=== PATIENT | female | born 1955 | race American Indian/Alaskan Native ===

== ENCOUNTER 2017-01-20 12:46 | Outpatient (CLI) | payer OTHER ==
--- NOTE | 2017-01-20 14:53 | Ultrasound Report ---
Limited ultrasound of the left arm. History: Soft tissue mass. Findings: Images of the area of palpable abnormality demonstrate no evidence of a cystic or solid mass. If clinically appropriate, MRI may be useful. Impression: Negative study.
== END 2017-01-20 12:47 | disposition home or self-care (01) ==
LOC: US 12:46
PROVIDERS: ATTEND Internal Medicine
DX: R22.32 Localized swelling, mass and lump, left upper limb (principal)

== ENCOUNTER 2017-03-22 17:30 | Emergency (ER) | payer OTHER ==
[2017-03-22 18:22] LABS: Basophils % (Auto) 0.5 % (0.0-1.8); Eosinophils % (Auto) 1.8 % (0.0-4.3); Hematocrit 30.3 % (30.3-42.9); Hemoglobin 9.2 gm/dl (10.1-14.3); Mean Corpuscular HGB Conc 31 % (30-34); Platelet Count 264 K/mm3 (140-440); Red Blood Count 4.53 M/mm3 (3.65-5.03); White Blood Count 6.1 K/mm3 (4.5-11.0)
[2017-03-22 18:28] LABS: Anion Gap 17 mmol/L; BUN/Creatinine Ratio 13.75; Blood Urea Nitrogen 11 mg/dL (7-17); Calcium 8.8 mg/dL (8.4-10.2); Carbon Dioxide 24 mmol/L (22-30); Chloride 103.1 mmol/L (98-107); Glucose 102 mg/dL (65-100); Potassium 3.7 mmol/L (3.6-5.0); Sodium 140 mmol/L (137-145)
[2017-03-22 18:30] LABS: Mean Corpuscular Hemoglobin 20 pg (28-32); Mean Corpuscular Volume 67 fl (79-97); Red Cell Distribution Width 22.6 % (13.2-15.2)
[2017-03-22 19:39] LABS: Bacteria,Urine 1+ /HPF (Negative); Bilirubin,Urine NEG (Negative); Blood,Urine NEG (Negative); Ketones,Urine NEG (Negative); Leukocyte Esterase,Urine NEG (Negative); Mucus,Urine FEW /HPF; Nitrite,Urine NEG (Negative); Protein,Urine <15 mg/dL mg/dL (Negative); Urobilinogen,Urine < 2.0 mg/dL (<2.0); WBC,Urine < 1.0 /HPF (0.0-6.0)
[2017-03-22] MEDS ORDERED: TORADOL IM ONE (20:03)
[2017-03-22] MEDS ORDERED: BENADRYL PO ONE (20:05)
[2017-03-22] MEDS ORDERED: MOTRIN PO ONE (20:09)
[2017-03-22] MEDS ORDERED: BACTRIM DS PO ONE (20:10)
--- NOTE | 2017-03-22 20:10 | Emergency Department Report ---
HPI - General Chief Complaint: Animal Bite Time Seen by Provider: 03/22/17 20:02 - HPI HPI: She is a 61-year-old female presents to ED complaining of generalized muscle ache, fever since yesterday. Patient states she was cleaning a new house yesterday and saw some spiders. Patient states she was not sure she was bitten by the spider. She stat states one episode of vomiting earlier today. Patient states last nail was earlier today around 1 PM she states she noticed some swelling on the left arm possible from the bite. She denies chills/nausea/abdominal pain/constipation/shortness of breath/chest pain/dizziness ED Past Medical Hx - Past Medical History Previous Medical History?: Yes Hx Hypertension: Yes Hx Heart Attack/AMI: Yes Hx Congestive Heart Failure: Yes Hx Diabetes: Yes Hx Deep Vein Thrombosis: No Hx Pulmonary Embolism: No Hx Liver Disease: No Hx Renal Disease: No Hx Arthritis: Yes Hx Headaches / Migraines: Yes Hx Seizures: No Hx Kidney Stones: No Hx Asthma: Yes Hx COPD: No Hx Tuberculosis: No Hx Dementia: No Hx HIV: No Additional medical history: HYPERTRHYOIDSIM. ULCER. HEP C? - Surgical History Past Surgical History?: Yes Hx Coronary Stent: No Hx Pacemaker: Yes Hx Internal Defibrillator: No Hx Cholecystectomy: No Hx Appendectomy: No Hx Breast Surgery: No Additional Surgical History: GLAND REMOVAL RIGHT UNDER ARM. PARTIAL HYSTERECTOMY, Pacemaker right chest - Social History Smoking Status: Former Smoker Substance Use Type: Prescribed - Medications Home Medications: Home Medications Medication Instructions Recorded Confirmed Last Taken Type Albuterol Sulfate [Ventolin HFA] 2 puff IH Q4H PRN 06/28/14 06/19/16 06/18/16 History 2 Esomeprazole Magnesium [NexIUM] 40 mg PO QDAY 06/28/14 06/19/16 06/18/16 History 40mg Hydrochlorothiazide [HCTZ] 50 mg PO DAILY 06/28/14 06/19/16 06/18/16 History 50mg metFORMIN [Glucophage] 1,000 mg PO BID 06/28/14 06/19/16 06/18/16 History 1000mg Fexofenadine/Pseudoephedrine 1 each PO DAILY 05/31/16 06/19/16 06/18/16 History [Stephanie-D 24 Hour Tablet] 1 Levothyroxine [Synthroid] 25 mcg PO QAM 05/31/16 06/19/16 06/18/16 History 25mcg Ferrous Sulfate [Feosol 325 MG tab] 325 mg PO BID 60 Days 06/04/16 06/19/16 Rx 325mg Amoxicillin [Amoxicillin 400 MG/5 400 mg PO BID #120 ml 03/22/17 Unknown Rx ML] Ibuprofen Oral Liqd [Motrin] 200 mg PO TID PRN #200 ml 03/22/17 Unknown Rx Promethazine /Codeine 5 ml PO Q6H PRN #80 ml 03/22/17 Unknown Rx [Phenergan/Codeine 6.25-10 mg/5Ml] diphenhydrAMINE [Benadryl ORAL LIQ] 25 mg PO Q4-6H PRN #80 ml 03/22/17 Unknown Rx ED Review of Systems ROS: Stated complaint: POSS SPIDER BITE Other details as noted in HPI Constitutional: denies: chills, fever Eyes: denies: eye pain, eye discharge, vision change ENT: denies: ear pain, throat pain, dental pain, hearing loss, congestion Respiratory: denies: cough, shortness of breath, wheezing Cardiovascular: denies: chest pain, palpitations Endocrine: no symptoms reported Gastrointestinal: vomiting. denies: abdominal pain, nausea, diarrhea Genitourinary: denies: urgency, dysuria, frequency, hematuria, discharge Musculoskeletal: denies: back pain, joint swelling, arthralgia Skin: denies: rash, lesions Neurological: denies: headache, weakness, paresthesias Psychiatric: denies: anxiety, depression Hematological/Lymphatic: denies: easy bleeding, easy bruising Physical Exam - Physical Exam Vital Signs: Vital Signs 03/22/17 17:44 Temperature 100.4 F H Pulse Rate 106 H Respiratory 20 Rate Blood Pressure 128/76 O2 Sat by Pulse 99 Oximetry Physical Exam: GENERAL: Alert and oriented x3, no apparent distress, Normal Gait, atraumatic. HEAD: Head is normocephalic and a-traumatic. EYES: Extra ocular muscles are intact. Pupils are equal, round, and reactive to light and accommodation. EARS: symetrical, atraumatic, non tender, ear canal clear and moderate cerumen, tympanic membrance non inflamed. gross auditory nml bilaterally. NOSE: Nose symetrical, Nontender,Nares appeared normal. MOUTH:Mouth is well hydrated and without lesions. Tonsils nonerythematous or swollen, Uvula midline, Tongue not elevated. Mucous membranes are moist. Posterior pharynx clear, no exudate or lesions. Patent airways. NECK: Supple. Non edematous, No carotid bruits. No lymphadenopathy or thyromegaly. LUNGS: Symetrical with respiration, No wheezing, no rales or crackles, CTAB. HEART: S1, S2 present, regular rate and rhythm without murmur, no rubs, no gallops. Non tender to palpation ABDOMEN: No organomegaly was noted,Positive bowel sounds, soft, and non- distended. . Nontender to palpation on all Quadrants, NO CVA tenderness. EXTREMITIES/MUSCULOSKELETAL: No cyanosis, clubbing, rash, lesions or edema. Full ROM bilaterally. UE/LE Pulses 2+ bilaterally. LE and UE 5+ strength bilaterally SKIN: Warm and dry, No lesions, No ulceration or induration present. ED Course Vital Signs 03/22/17 17:44 Temperature 100.4 F H Pulse Rate 106 H Respiratory 20 Rate Blood Pressure 128/76 O2 Sat by Pulse 99 Oximetry ED Medical Decision Making - Lab Data Result diagrams: 03/22/17 17:58 03/22/17 17:58 - Medical Decision Making 61-year-old female presents with urinary tract infection ED course: CBC, BMP, urinalysis, chest x-ray are ordered. Urinalysis positive for UTI All other results normal limits Discussed all findings of patient. discussed with patient to take medication as prescribed. Discussed if worsening symptoms or new symptoms arise to return to ED. Discussed the fever elevates over 102 Fahrenheit to return to ED. Vital signs are stable fever reduced and was responsive to Tylenol and Motrin Critical care attestation.: If time is entered above; I have spent that time in minutes in the direct care of this critically ill patient, excluding procedure time. ED Disposition Clinical Impression: UTI (urinary tract infection) Qualifiers: Urinary tract infection type: acute cystitis Hematuria presence: with hematuria Qualified Code(s): N30.01 - Acute cystitis with hematuria Disposition: TO HOME OR SELFCARE Is pt being admited?: No Does the pt Need Aspirin: No Condition: Stable Instructions: Urinary Tract Infection in Women (ED), Insect Bite or Sting (ED) Prescriptions: Amoxicillin [Amoxicillin 400 MG/5 ML] 400 mg PO BID #120 ml diphenhydrAMINE [Benadryl ORAL LIQ] 25 mg PO Q4-6H PRN #80 ml PRN Reason: Allergy Symptoms Ibuprofen Oral Liqd [Motrin] 200 mg PO TID PRN #200 ml PRN Reason: Pain Promethazine /Codeine [Phenergan/Codeine 6.25-10 mg/5Ml] 5 ml PO Q6H PRN #80 ml PRN Reason: cough Referrals: FRANCISCO ABRAHAM MD [Primary Care Provider] - 3-5 Days Forms: Work/School Release Form(ED) Time of Disposition: 22:48
--- NOTE | 2017-03-22 21:48 | XRay Report ---
FINAL REPORT EXAM: XR CHEST ROUTINE 2V HISTORY: fev/cough TECHNIQUE: PA and lateral chest radiographs PRIORS: None. FINDINGS: No mediastinal shift. Cardiac silhouette is not enlarged. Right chest pacemaker. No pneumothorax, effusion, or focal pulmonary opacity. No acute skeletal finding. IMPRESSION: No focal pulmonary opacity.
[2017-03-22 21:49] VITALS: BP 146/79
== END 2017-03-22 23:09 | disposition home or self-care (01) ==
LOC: ED 17:30
DX: N30.01 Acute cystitis with hematuria (principal); I10 Essential (primary) hypertension; I25.2 Old myocardial infarction; I50.9 Heart failure, unspecified; E11.9 Type 2 diabetes mellitus without complications; M19.90 Unspecified osteoarthritis, unspecified site; G43.909 Migraine, unspecified, not intractable, without status migrainosus; J45.909 Unspecified asthma, uncomplicated; Z95.0 Presence of cardiac pacemaker; Z87.891 Personal history of nicotine dependence
CPT/HCPCS: 36415; 71020; 80048; 81001; 85025; 87116; 87430; 96372; 99284; J2930; Q0163

== ENCOUNTER 2017-03-31 21:17 | Emergency (ER) | payer OTHER ==
[2017-03-31 21:22] VITALS: BP 154/82
[2017-03-31 22:10] LABS: Bilirubin,Urine NEG (Negative); Blood,Urine NEG (Negative); Ketones,Urine TR mg/dL (Negative); Leukocyte Esterase,Urine NEG (Negative); Mucus,Urine 3+ /HPF; Nitrite,Urine NEG (Negative); Urobilinogen,Urine < 2.0 mg/dL (<2.0)
[2017-03-31 22:39] LABS: Anion Gap 19 mmol/L; BUN/Creatinine Ratio 28.33; Basophils % (Auto) 0.4 % (0.0-1.8); Blood Urea Nitrogen 17 mg/dL (7-17); Carbon Dioxide 23 mmol/L (22-30); Chloride 100.8 mmol/L (98-107); Eosinophils % (Auto) 1.1 % (0.0-4.3); Glucose 96 mg/dL (65-100); Hematocrit 29.3 % (30.3-42.9); Hemoglobin 9.2 gm/dl (10.1-14.3); Mean Corpuscular HGB Conc 31 % (30-34); Platelet Count 275 K/mm3 (140-440); Potassium 3.5 mmol/L (3.6-5.0); Red Blood Count 4.43 M/mm3 (3.65-5.03); Sodium 139 mmol/L (137-145); White Blood Count 7.8 K/mm3 (4.5-11.0)
[2017-03-31 22:45] LABS: Mean Corpuscular Hemoglobin 21 pg (28-32); Mean Corpuscular Volume 66 fl (79-97); Red Cell Distribution Width 21.7 % (13.2-15.2)
--- NOTE | 2017-04-04 17:05 | ED Elopement Review ---
ED Pt Elopement review - Results review Lab results: Laboratory Tests 03/31/17 03/31/17 03/31/17 21:54 22:07 22:07 WBC 7.8 RBC 4.43 Hgb 9.2 L Hct 29.3 L MCV 66 L MCH 21 L MCHC 31 RDW 21.7 H Plt Count 275 Lymph % (Auto) 42.5 H [place] % (Auto) 9.3 H Eos % (Auto) 1.1 Baso % (Auto) 0.4 Lymph # 3.3 Garvin # 0.7 Eos # 0.1 Baso # 0.0 Seg Neutrophils % 46.7 Seg Neutrophils # 3.6 Sodium 139 Potassium 3.5 L Chloride 100.8 Carbon Dioxide 23 Anion Gap 19 BUN 17 Creatinine 0.6 L Estimated GFR > 60 BUN/Creatinine Ratio 28.33 Glucose 96 Calcium 9.0 Troponin T < 0.010 Urine Color Yellow Urine Turbidity Clear Urine pH 5.0 Ur Specific [place] 1.026 Urine Protein 30 mg/dl Urine Glucose (UA) Neg Urine Ketones Tr Urine Blood Neg Urine Nitrite Neg Urine Bilirubin Neg Urine Urobilinogen < 2.0 Ur Leukocyte Esterase Neg Urine WBC (Auto) 3.0 Urine RBC (Auto) 17.0 U Epithel Cells (Auto) 12.0 Urine Mucus 3+ - Call Back decision Pt Call Back Decision: No action required
== END 2017-03-31 23:00 | disposition left against medical advice (07) ==
LOC: ED 21:17
DX: R07.9 Chest pain, unspecified (principal); R11.2 Nausea with vomiting, unspecified; R50.9 Fever, unspecified; Z53.21 Procedure and treatment not carried out due to patient leaving prior to being seen by health care provider
CPT/HCPCS: 36415; 80048; 81001; 84484; 85025; 93005; 93010

== ENCOUNTER 2017-06-10 20:51 | Emergency (ER) | payer OTHER ==
[2017-06-10 22:11] LABS: Basophils % (Auto) 0.4 % (0.0-1.8); Eosinophils % (Auto) 3.9 % (0.0-4.3); Hematocrit 27.3 % (30.3-42.9); Hemoglobin 8.6 gm/dl (10.1-14.3); Mean Corpuscular HGB Conc 31 % (30-34); Platelet Count 317 K/mm3 (140-440); Red Blood Count 4.19 M/mm3 (3.65-5.03); White Blood Count 6.8 K/mm3 (4.5-11.0)
[2017-06-10 22:13] LABS: Mean Corpuscular Hemoglobin 21 pg (28-32); Mean Corpuscular Volume 65 fl (79-97); Red Cell Distribution Width 21.8 % (13.2-15.2)
[2017-06-10 22:20] LABS: INR 0.96 (0.87-1.13)
[2017-06-10 22:21] LABS: Partial Thromboplastin Time 27.5 Sec. (24.2-36.6)
[2017-06-10 22:27] LABS: Anion Gap 17 mmol/L; BUN/Creatinine Ratio 18.57; Blood Urea Nitrogen 13 mg/dL (7-17); Calcium 9.2 mg/dL (8.4-10.2); Carbon Dioxide 25 mmol/L (22-30); Chloride 102.9 mmol/L (98-107); Glucose 94 mg/dL (65-100); Potassium 3.9 mmol/L (3.6-5.0); Sodium 141 mmol/L (137-145)
[2017-06-10 23:10] LABS: Bacteria,Urine 1+ /HPF (Negative); Bilirubin,Urine NEG (Negative); Blood,Urine NEG (Negative); Ketones,Urine NEG (Negative); Leukocyte Esterase,Urine NEG (Negative); Mucus,Urine FEW /HPF; Nitrite,Urine NEG (Negative); Protein,Urine <15 mg/dL mg/dL (Negative); Urobilinogen,Urine < 2.0 mg/dL (<2.0); WBC,Urine < 1.0 /HPF (0.0-6.0)
--- NOTE | 2017-06-11 02:05 | Emergency Department Report ---
ED Chest Pain HPI - General Chief Complaint: Chest Pain Stated Complaint: CHEST PAIN Time Seen by Provider: 06/11/17 01:49 Source: patient Mode of arrival: Wheelchair Limitations: No Limitations - History of Present Illness Initial Comments: 62-year-old female here with chest pain. Patient complains of pain for the last day. It is worse with palpation and worse with movement. She describes the pain as an ache. She also complains of right flank pain. She states tender to palpation. She has no dysuria. She noted fever or chills. MD Complaint: chest pain -: Sudden, days(s) (1) Onset: during rest Pain Location: substernal Severity scale (0 -10): 8 Quality: sharp Improves With: nothing Worsens With: palpation re: denies: nausea, vomting, diaphoresis, dyspnea, sense of impending doom Other Symptoms: denies: cough, fever, syncope, rash, acid taste in mouth, leg swelling Treatments Prior to Arrival: none - Related Data Home Medications Medication Instructions Recorded Confirmed Last Taken Albuterol Sulfate [Ventolin HFA] 2 puff IH Q4H PRN 06/28/14 06/11/17 06/18/16 2 Esomeprazole Magnesium [NexIUM] 40 mg PO QDAY 06/28/14 06/11/17 06/10/17 Hydrochlorothiazide [HCTZ] 50 mg PO DAILY 06/28/14 06/11/17 06/10/17 metFORMIN [Glucophage] 1,000 mg PO BID 06/28/14 06/11/17 06/10/17 Fexofenadine/Pseudoephedrine 1 each PO DAILY 05/31/16 06/11/17 06/10/17 [Stephanie-D 24 Hour Tablet] Levothyroxine [Synthroid] 25 mcg PO QAM 05/31/16 06/11/17 06/10/17 Previous Rx's Medication Instructions Recorded Last Taken Type Ferrous Sulfate [Feosol 325 MG tab] 325 mg PO BID 60 Days 06/04/16 06/10/17 Rx Amoxicillin [Amoxicillin 400 MG/5 400 mg PO BID #120 ml 03/22/17 Unknown Rx ML] Ibuprofen Oral Liqd [Motrin] 200 mg PO TID PRN #200 ml 03/22/17 06/10/17 Rx Promethazine /Codeine 5 ml PO Q6H PRN #80 ml 03/22/17 Unknown Rx [Phenergan/Codeine 6.25-10 mg/5Ml] diphenhydrAMINE [Benadryl ORAL LIQ] 25 mg PO Q4-6H PRN #80 ml 03/22/17 Unknown Rx Acetaminophen/Codeine [Tylenol 1 tab PO Q6H PRN #10 tab 06/11/17 Unknown Rx /Codeine # 3 tab] Ibuprofen [Motrin 600 MG tab] 600 mg PO Q8H PRN #30 tablet 06/11/17 Unknown Rx Allergies Allergy/AdvReac Type Severity Reaction Status Date / Time No Known Allergies Allergy Verified 06/11/17 01:44 Heart Score - HEART Score History: Slightly suspicious EKG: Non-specific Age: 45-65 Risk factors: > 3 risk factors or hx of atherosclerotic disease Troponin: < normal limit HEART Score: 4 ED Review of Systems ROS: Stated complaint: CHEST PAIN Other details as noted in HPI Comment: All other systems reviewed and negative Constitutional: denies: chills, fever Eyes: denies: eye pain, eye discharge, vision change ENT: denies: ear pain, throat pain Respiratory: denies: cough, shortness of breath, wheezing Cardiovascular: chest pain. denies: palpitations Endocrine: no symptoms reported Gastrointestinal: denies: abdominal pain, nausea Genitourinary: denies: urgency, dysuria, discharge Musculoskeletal: denies: back pain, joint swelling, arthralgia Skin: denies: rash, lesions Neurological: denies: weakness, paresthesias Psychiatric: denies: anxiety, depression Hematological/Lymphatic: denies: easy bleeding, easy bruising ED Past Medical Hx - Past Medical History Previous Medical History?: Yes Hx Hypertension: Yes Hx Heart Attack/AMI: Yes Hx Congestive Heart Failure: Yes Hx Diabetes: Yes Hx Deep Vein Thrombosis: No Hx Pulmonary Embolism: No Hx Liver Disease: No Hx Renal Disease: No Hx Arthritis: Yes Hx Headaches / Migraines: Yes Hx Seizures: No Hx Kidney Stones: No Hx Asthma: Yes Hx COPD: No Hx Tuberculosis: No Hx Dementia: No Hx HIV: No Additional medical history: HYPERTRHYOIDSIM. ULCER. HEP C? - Surgical History Past Surgical History?: Yes Hx Coronary Stent: No Hx Pacemaker: Yes Hx Internal Defibrillator: No Hx Cholecystectomy: No Hx Appendectomy: No Hx Breast Surgery: No Additional Surgical History: GLAND REMOVAL RIGHT UNDER ARM. PARTIAL HYSTERECTOMY, Pacemaker right chest - Family History Family history: CAD/NH - Social History Smoking Status: Current Every Day Smoker Substance Use Type: None - Medications Home Medications: Home Medications Medication Instructions Recorded Confirmed Last Taken Type Albuterol Sulfate [Ventolin HFA] 2 puff IH Q4H PRN 06/28/14 06/11/17 06/18/16 History 2 Esomeprazole Magnesium [NexIUM] 40 mg PO QDAY 06/28/14 06/11/17 06/10/17 History Hydrochlorothiazide [HCTZ] 50 mg PO DAILY 06/28/14 06/11/17 06/10/17 History metFORMIN [Glucophage] 1,000 mg PO BID 06/28/14 06/11/17 06/10/17 History Fexofenadine/Pseudoephedrine 1 each PO DAILY 05/31/16 06/11/17 06/10/17 History [Stephanie-D 24 Hour Tablet] Levothyroxine [Synthroid] 25 mcg PO QAM 05/31/16 06/11/17 06/10/17 History Ferrous Sulfate [Feosol 325 MG tab] 325 mg PO BID 60 Days 06/04/16 06/11/17 Rx Amoxicillin [Amoxicillin 400 MG/5 400 mg PO BID #120 ml 03/22/17 06/11/17 Unknown Rx ML] Ibuprofen Oral Liqd [Motrin] 200 mg PO TID PRN #200 ml 03/22/17 06/11/17 Rx Promethazine /Codeine 5 ml PO Q6H PRN #80 ml 03/22/17 06/11/17 Unknown Rx [Phenergan/Codeine 6.25-10 mg/5Ml] diphenhydrAMINE [Benadryl ORAL LIQ] 25 mg PO Q4-6H PRN #80 ml 03/22/17 06/11/17 Unknown Rx Acetaminophen/Codeine [Tylenol 1 tab PO Q6H PRN #10 tab 06/11/17 Unknown Rx /Codeine # 3 tab] Ibuprofen [Motrin 600 MG tab] 600 mg PO Q8H PRN #30 tablet 06/11/17 Unknown Rx ED Physical Exam - General Limitations: No Limitations General appearance: alert, in no apparent distress - Head Head exam: Present: atraumatic, normocephalic - Eye Eye exam: Present: normal appearance. Absent: EOMI, conjunctival injection - ENT ENT exam: Present: mucous membranes dry - Neck Neck exam: Present: normal inspection. Absent: lymphadenopathy - Respiratory Respiratory exam: Present: normal lung sounds bilaterally. Absent: respiratory distress, wheezes, rales - Cardiovascular Cardiovascular Exam: Present: regular rate, normal rhythm, normal heart sounds, other (patient tender to palpation in the left sternum). Absent: systolic murmur, diastolic murmur, rubs, gallop - GI/Abdominal GI/Abdominal exam: Present: soft, normal bowel sounds. Absent: distended, tenderness, guarding, rebound - Extremities Exam Extremities exam: Present: normal inspection - Back Exam Back exam: Present: normal inspection - Neurological Exam Neurological exam: Present: alert, oriented X3 - Psychiatric Psychiatric exam: Present: normal affect, normal mood - Skin Skin exam: Present: warm, dry, intact, normal color. Absent: rash ED Course Vital Signs 06/10/17 06/11/17 21:05 01:44 Temperature 98.9 F Pulse Rate 89 68 Respiratory 18 16 Rate Blood Pressure 113/73 Blood Pressure 125/51 [Left] O2 Sat by Pulse 99 100 Oximetry ED Medical Decision Making - Lab Data Result diagrams: 06/10/17 21:40 06/10/17 21:40 Laboratory Results - last 24 hr 06/10/17 06/10/17 06/10/17 21:40 21:40 21:40 WBC 6.8 RBC 4.19 Hgb 8.6 L Hct 27.3 L MCV 65 L MCH 21 L MCHC 31 RDW 21.8 H Plt Count 317 Lymph % (Auto) 37.0 H [place]uce % (Auto) 10.9 H Eos % (Auto) 3.9 Baso % (Auto) 0.4 Lymph # 2.5 Luce # 0.7 Eos # 0.3 Baso # 0.0 Seg Neutrophils % 47.8 Seg Neutrophils # 3.2 PT 12.7 INR 0.96 APTT 27.5 VBG pH Sodium 141 Potassium 3.9 Chloride 102.9 Carbon Dioxide 25 Anion Gap 17 BUN 13 Creatinine 0.7 Estimated GFR > 60 BUN/Creatinine Ratio 18.57 Glucose 94 Lactic Acid Calcium 9.2 Troponin T < 0.010 Urine Color Urine Turbidity Urine pH Ur Specific [place] Urine Protein Urine Glucose (UA) Urine Ketones Urine Blood Urine Nitrite Urine Bilirubin Urine Urobilinogen Ur Leukocyte Esterase Urine WBC (Auto) Urine RBC (Auto) U Epithel Cells (Auto) Urine Bacteria (Auto) Urine Mucus 06/10/17 06/10/17 06/10/17 21:40 21:40 22:15 WBC RBC Hgb Hct MCV MCH MCHC RDW Plt Count Lymph % (Auto) Luce % (Auto) Eos % (Auto) Baso % (Auto) Lymph # Luce # Eos # Baso # Seg Neutrophils % Seg Neutrophils # PT INR APTT VBG pH 7.371 Sodium Potassium Chloride Carbon Dioxide Anion Gap BUN Creatinine Estimated GFR BUN/Creatinine Ratio Glucose Lactic Acid 1.30 Calcium Troponin T Urine Color Straw Urine Turbidity Clear Urine pH 6.0 Ur Specific [place] 1.009 Urine Protein <15 mg/dl Urine Glucose (UA) Neg Urine Ketones Neg Urine Blood Neg Urine Nitrite Neg Urine Bilirubin Neg Urine Urobilinogen < 2.0 Ur Leukocyte Esterase Neg Urine WBC (Auto) < 1.0 Urine RBC (Auto) 1.0 U Epithel Cells (Auto) 1.0 Urine Bacteria (Auto) 1+ Urine Mucus Few 06/11/17 06/11/17 00:20 00:20 WBC RBC Hgb Hct MCV MCH MCHC RDW Plt Count Lymph % (Auto) Luce % (Auto) Eos % (Auto) Baso % (Auto) Lymph # Luce # Eos # Baso # Seg Neutrophils % Seg Neutrophils # PT INR APTT VBG pH Sodium Potassium Chloride Carbon Dioxide Anion Gap BUN Creatinine Estimated GFR BUN/Creatinine Ratio Glucose Lactic Acid 1.20 Calcium Troponin T < 0.010 Urine Color Urine Turbidity Urine pH Ur Specific [place] Urine Protein Urine Glucose (UA) Urine Ketones Urine Blood Urine Nitrite Urine Bilirubin Urine Urobilinogen Ur Leukocyte Esterase Urine WBC (Auto) Urine RBC (Auto) U Epithel Cells (Auto) Urine Bacteria (Auto) Urine Mucus - EKG Data -: EKG Interpreted by Me - EKG Data 06/11/17 02:02 Sinuses before normal axis and prolonged QTc of 472 T wave inversion in 2-3 aVF and V2 through V6 - Medical Decision Making 66-year-old female with known history of CAD here with complaint of left-sided chest pain. She is tender to palpation on her left chest wall. Her EKG is nonspecific and shows multiple T-wave inversions. Her T-wave inversions are old when compared her EKG. Her story is not consistent with ACS and is very atypical. I do not suspect ACS. Plan is to treat with NSAIDs and anticipate discharge home as likely musculoskeletal chest pain. Do not feel she has UTI or renal colic given the UA is clean. Plan discharge the patient home with NSAIDs and something for cough. Discussed the patient's workup plan. Portions of this chart were dictated with dictation software. There may be dictation errors contained within this note. Critical care attestation.: If time is entered above; I have spent that time in minutes in the direct care of this critically ill patient, excluding procedure time. ED Disposition Clinical Impression: Precordial chest pain Disposition: [id number]-01 TO HOME OR SELFCARE Is pt being admited?: No Condition: Stable Instructions: Chest Pain (ED) Prescriptions: Acetaminophen/Codeine [Tylenol /Codeine # 3 tab] 1 tab PO Q6H PRN #10 tab PRN Reason: Cough Ibuprofen [Motrin 600 MG tab] 600 mg PO Q8H PRN #30 tablet PRN Reason: Pain Referrals: FRANCISCO ABRAHAM MD [Primary Care Provider] - 3-5 Days
[2017-06-11] MEDS ORDERED: TORADOL IV ONE (02:08)
[2017-06-11 04:13] VITALS: BP 117/56
--- NOTE | 2017-06-11 08:08 | XRay Report ---
CHEST TWO VIEWS: 06/10/17 20:51:00 CLINICAL: Chest pain. COMPARISON: 03/22/17 FINDINGS: Borderline cardiomegaly with pacer leads in heart. Normal pulmonary vessels. The lungs are normally expanded and clear.Degenerative change in the spine. IMPRESSION: Borderline cardiomegaly but no CHF.
== END 2017-06-11 04:13 | disposition home or self-care (01) ==
LOC: ED 20:51
DX: R07.2 Precordial pain (principal); I10 Essential (primary) hypertension; I25.2 Old myocardial infarction; I50.9 Heart failure, unspecified; E11.9 Type 2 diabetes mellitus without complications; J45.909 Unspecified asthma, uncomplicated; F17.200 Nicotine dependence, unspecified, uncomplicated
CPT/HCPCS: 36415; 71020; 80048; 81001; 82140; 82805; 84484; 85025; 85610; 85730; 87040; 87086; 93005; 93010; 96374; 99284; J1885

== ENCOUNTER 2018-02-28 19:42 | Emergency (ER) | payer OTHER ==
[2018-02-28 20:18] LABS: Hematocrit 26.8 % (30.3-42.9); Hemoglobin 8.2 gm/dl (10.1-14.3); Mean Corpuscular HGB Conc 31 % (30-34); Platelet Count 272 K/mm3 (140-440); Red Blood Count 4.24 M/mm3 (3.65-5.03)
[2018-02-28 20:21] LABS: Mean Corpuscular Hemoglobin 19 pg (28-32); Mean Corpuscular Volume 63 fl (79-97); Red Cell Distribution Width 22.7 % (13.2-15.2)
[2018-02-28 20:32] LABS: BUN/Creatinine Ratio 19; Blood Urea Nitrogen 13 mg/dL (7-17); Calcium 8.9 mg/dL (8.4-10.2); Hemolysis Index 0
[2018-02-28 21:18] LABS: Anisocytosis 1+; Basophils % (Manual) 0 % (0.0-1.8); Total Cells Counted 100
[2018-02-28 21:19] LABS: Hypochromasia 2+; Ovalocytes 2+; Poikilocytosis 1+
[2018-02-28 21:20] LABS: Target Cells Few
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
[2018-02-28] MEDS ORDERED: AUGMENTIN 875 MG PO ONE (22:59)
[2018-02-28] MEDS ORDERED: HYDROMET PO ONE (23:00)
[2018-02-28 23:37] VITALS: BP 140/90
--- NOTE | 2018-03-01 14:31 | XRay Report ---
FINAL REPORT PROCEDURE: Chest. TECHNIQUE: PA and lateral views. HISTORY: Shortness of breath . COMPARISON: Chest 03/22/2017. FINDINGS: The heart size is normal. There is calcification in the aortic arch. The lungs are clear and well expanded. There are no pleural effusions. There is a right-sided pacemaker with dual electrode leads. The soft tissues and regional skeleton are unremarkable. IMPRESSION: No evidence of acute cardiopulmonary disease.
== END 2018-02-28 23:54 | disposition home or self-care (01) ==
LOC: ED 19:42
DX: J40 Bronchitis, not specified as acute or chronic (principal); I11.0 Hypertensive heart disease with heart failure; G43.909 Migraine, unspecified, not intractable, without status migrainosus; E11.9 Type 2 diabetes mellitus without complications; Z90.711 Acquired absence of uterus with remaining cervical stump; F17.200 Nicotine dependence, unspecified, uncomplicated; Z86.12 Personal history of poliomyelitis
CPT/HCPCS: 36415; 71046; 80048; 83880; 84484; 85007; 85025; 93005; 93010; 99284

== ENCOUNTER 2018-11-10 20:17 | Emergency (ER) | payer OTHER ==
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
[2018-11-10 20:47] VITALS: BP 141/81
[2018-11-10] MEDS ORDERED: IBUPROFEN PO ONE (21:40)
[2018-11-10] MEDS ORDERED: NORCO 7.5/325 PO ONE (21:40)
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
[2018-11-10 23:57] LABS: Bilirubin,Urine NEG (Negative); Blood,Urine NEG (Negative); Color,Urine Yellow (Yellow); Mucus,Urine FEW /HPF; Protein,Urine <15 mg/dL mg/dL (Negative); Urobilinogen,Urine < 2.0 mg/dL (<2.0)
== END 2018-11-11 00:20 | disposition home or self-care (01) ==
LOC: ED 20:17
DX: M79.18 Myalgia, other site (principal); R30.0 Dysuria; I11.0 Hypertensive heart disease with heart failure; I50.9 Heart failure, unspecified; E11.9 Type 2 diabetes mellitus without complications; M19.90 Unspecified osteoarthritis, unspecified site; G43.909 Migraine, unspecified, not intractable, without status migrainosus; J45.909 Unspecified asthma, uncomplicated; F17.200 Nicotine dependence, unspecified, uncomplicated; V49.49XA Driver injured in collision with other motor vehicles in traffic accident, initial encounter; Y93.89 Activity, other specified; Y92.89 Other specified places as the place of occurrence of the external cause; Y99.8 Other external cause status
CPT/HCPCS: 72040; 72100; 81001; 87086

== ENCOUNTER 2019-08-31 22:46 | Emergency (ER) | payer SELFPAY ==
[2019-08-31 22:56] VITALS: BP 144/79
--- NOTE | 2019-08-31 23:45 | XRay Report ---
CHEST 1 VIEW INDICATION / CLINICAL INFORMATION: Chest Pain. COMPARISON: None available. FINDINGS: SUPPORT DEVICES: None. HEART / MEDIASTINUM: No significant abnormality. LUNGS / PLEURA: No significant pulmonary or pleural abnormality. No pneumothorax. ADDITIONAL FINDINGS: No significant additional findings. IMPRESSION: 1. No acute findings. Signer Name: Hamilton Castaneda MD Signed: 08/31/2019 11:40 PM Workstation Name: [id number]
[2019-09-01 00:04] LABS: Basophils # (Auto) 0.1 K/mm3 (0.0-0.1); Basophils % (Auto) 0.7 % (0.0-1.8); Eosinophils # (Auto) 0.2 K/mm3 (0.0-0.4); Eosinophils % (Auto) 3.1 % (0.0-4.3); Hematocrit 30.5 % (30.3-42.9); Hemoglobin 9.6 gm/dl (10.1-14.3); Lymphocytes # (Auto) 2.5 K/mm3 (1.2-5.4); Lymphocytes % (Auto) 33.4 % (13.4-35.0); Mean Corpuscular HGB Conc 31 % (30-34); Monocytes # (Auto) 0.6 K/mm3 (0.0-0.8); Platelet Count 291 K/mm3 (140-440); Red Blood Count 4.37 M/mm3 (3.65-5.03)
[2019-09-01 00:29] LABS: Mean Corpuscular Volume 70 fl (79-97); Red Cell Distribution Width 20.5 % (13.2-15.2)
[2019-09-01 01:22] LABS: BUN/Creatinine Ratio 19; Blood Urea Nitrogen 13 mg/dL (7-17); Calcium 9.2 mg/dL (8.4-10.2); Hemolysis Index 3
== END 2019-09-01 02:00 | disposition left against medical advice (07) ==
LOC: ED 22:46
DX: R07.89 Other chest pain (principal); Z53.21 Procedure and treatment not carried out due to patient leaving prior to being seen by health care provider
CPT/HCPCS: 36415; 71045; 80048; 84484; 85025; 93005; 93010